=== PATIENT | female | born 1935 | race Caucasian/White ===

== ENCOUNTER → 2016-06-16 | Outpatient (CLI) | payer MEDICARE, MEDICAID ==
[~2016-06-16] MED LIST: 8 HOUR PAIN RE650 M1 PO; CPAP INH; FOSAMAX70 MG PO; LIPITOR20 M1 PO; LOSARTAN-HCTZ1 EAC1 PO; REFRESH PLUS1 EACH OPHTH; VITAMIN D1000 UNIT PO
== END | disposition disaster alternative care site (69) ==
LOC: GBCOE 13:04
DX: Z12.31 Encounter for screening mammogram for malignant neoplasm of breast (principal)
CPT/HCPCS: G0202